=== PATIENT | female | born 1955 | race Caucasian/White ===

== ENCOUNTER → 2018-02-23 | Day surgery (SDC) | payer OTHER ==
[~2018-02-23] MED LIST: ACYCLOVIR800 MG PO; ALBUTEROL0.63 MG/3 INH; ASPIRIN81 M1 PO; ASPIRIN81 MG PO; BP MED PO; CELEBREX200 MG PO; CRESTOR10 MG PO; FENTANYL CITRATE/PF 100MCG/2 ML INJ ONE; KEFLEX500 MG PO; LIDODERM700 MG; LYRICA; LYRICA150 MG PO; LYRICA75 MG; MIDAZOLAM HCL 2 MG/2 ML VIAL ONE; NAPROSYN500 MG PO; NORCO 10-325 T1 EACH PO; NORCO 10MG-325MG1 EA PO; PREDNISONE10 M1; PROMETHAZINE HC25 M1; PROMETHAZINE HC25 M1 PO; PROPOFOL IV EMULSION 10 MG/ML 50 ML VIAL ONE; PROTONIX40 MG PO; PROZAC PO; SENNA S TABLET1 EACH PO; TOPROL XL25 MG PO; TYLENOL WITH C1 EACH PO; ULTRACET TABLE1 EACH PO; ULTRAM50 MG PO; WELLBUTRIN XL150 MG PO; [UNRECOGNIZED DRUG - REMARK]
[2018-02-23 11:04] LABS: BASOPHILS # (AUTO) 0.1 (0.0-0.1); BASOPHILS % 0.8 % (0.0-1.0); EOSINOPHILS # (AUTO) 0.2 (0.0-0.4); EOSINOPHILS % 2.9 % (0.0-6.0); HEMATOCRIT 37.5 % (34.2-44.1); HEMOGLOBIN 12.1 g/dL (12.0-16.0); LYMPHOCYTES # (AUTO) 1.9 (1.0-3.2); LYMPHOCYTES % 24.7 % (18.0-39.1); MEAN CORPUSCULAR HEMOGLOBIN 27.9 pg (28-32); MEAN CORPUSCULAR HGB CONC 32.3 g/dL (31-35); MEAN CORPUSCULAR VOLUME 86.6 fL (81-99); MONOCYTES # (AUTO) 0.4 (0.2-0.8); MONOCYTES % 5.2 % (4.4-11.3); NEUTROPHILS # (AUTO) 5.2 (2.1-6.9); PLATELET COUNT 366 x10e3/uL (140-360); RED BLOOD COUNT 4.33 x10e6/uL (3.6-5.1); RED CELL DISTRIBUTION WIDTH 14.4 % (11.7-14.4)
--- NOTE | 2018-02-23 12:57 | Operative Report ---
DATE OF PROCEDURE: February 23, 2018 REFERRING PHYSICIAN: Ankit Quiroz MD PROCEDURE PERFORMED: Esophagogastroduodenoscopy with esophageal dilatation and biopsies. INDICATIONS FOR PROCEDURE: Dysphagia. History of nausea and vomiting. MEDICATION: Patient was done under MAC. Please see anesthesiologist's note. PROCEDURE: With the patient in the left lateral decubitus position, the flexible fiberoptic Olympus gastroscope was introduced into the esophagus under direct visualization without any difficulty. The esophagus appeared to be within normal limits. There was a mild stricture noted at the GE junction that was dilated to a size 52-[place] Gregory. The scope was then advanced with ease into the stomach, traversing a small sliding hiatal hernia. Mucosa overlying the antrum and the body revealed some patchy, intense erythema and low-grade to moderate edema, and biopsies were obtained and sent to stain for H. pylori. Pylorus appeared to be of normal contour and shape. It was intubated with ease, and the scope was advanced all the way to the 2nd portion of the duodenum. There was some patchy erythema noted in the bulb and the proximal 2nd portion. The scope was then withdrawn back into the stomach and retroflexed. Mucosa overlying the fundus appeared to be within normal limits. The previously described hiatal hernia was also noted in the retroflexed position. The scope was then straightened out. The stomach was decompressed. The scope was subsequently withdrawn. Patient tolerated the procedure well. IMPRESSION 1. Esophageal stricture at gastroesophageal junction dilated to a size 52-[place] Gregory. 2. Small sliding hiatal hernia. 3. Gastritis, biopsied. Biopsies sent to stain for H. pylori. 4. Duodenitis. PLAN: Follow up histology. Initiate Protonix 40 mg 1 p.o. q.a.m. a.c. Job#: [id number] cc:ANKIT QUIROZ MD
[2018-02-23 13:08] VITALS: BP 157/70
== END | disposition home or self-care (01) ==
LOC: OR 09:29
PROVIDERS: ATTEND Internal Medicine Gastroenterology
DX: K22.2 Esophageal obstruction (principal); K29.70 Gastritis, unspecified, without bleeding; K29.80 Duodenitis without bleeding; K44.9 Diaphragmatic hernia without obstruction or gangrene; K21.9 Gastro-esophageal reflux disease without esophagitis; I25.2 Old myocardial infarction; M79.7 Fibromyalgia; I10 Essential (primary) hypertension; J45.909 Unspecified asthma, uncomplicated; Z87.891 Personal history of nicotine dependence; Z80.0 Family history of malignant neoplasm of digestive organs
CPT/HCPCS: 36415; 43239; 43450; 85025; 93005; J2250

== ENCOUNTER → 2018-03-23 | Day surgery (SDC) | payer OTHER ==
[2018-03-22 11:55] LABS: BASOPHILS # (AUTO) 0.1 (0.0-0.1); BASOPHILS % 0.7 % (0.0-1.0); EOSINOPHILS # (AUTO) 0.3 (0.0-0.4); EOSINOPHILS % 2.2 % (0.0-6.0); HEMATOCRIT 34.1 % (34.2-44.1); HEMOGLOBIN 11.3 g/dL (12.0-16.0); LYMPHOCYTES % 25.9 % (18.0-39.1); MEAN CORPUSCULAR HEMOGLOBIN 28.8 pg (28-32); MEAN CORPUSCULAR HGB CONC 33.1 g/dL (31-35); MONOCYTES # (AUTO) 0.7 (0.2-0.8); MONOCYTES % 5.7 % (4.4-11.3); NEUTROPHILS # (AUTO) 7.4 (2.1-6.9); NEUTROPHILS % 65.1 % (38.7-80.0); PLATELET COUNT 357 x10e3/uL (140-360); RED BLOOD COUNT 3.92 x10e6/uL (3.6-5.1); RED CELL DISTRIBUTION WIDTH 15.2 % (11.7-14.4)
[~2018-03-23] MED LIST changes: +METOCLOPRAMIDE HCL 10 MG/2ML VIAL ONE
[2018-03-23 13:15] VITALS: BP 114/77
--- NOTE | 2018-03-23 14:26 | Operative Report ---
DATE OF PROCEDURE: March 23, 2018 REFERRING PHYSICIAN: Ankit Quiroz MD PROCEDURE PERFORMED: Colonoscopy to distal transverse colon with polypectomy. INDICATIONS FOR COLONOSCOPY: Surveillance colonoscopy, personal history of colon polyps. MEDICATION: Patient was done under MAC. Please see anesthesiologist's note. PROCEDURE: With the patient in the left lateral decubitus position, the flexible fiberoptic Olympus colonoscope was inserted into the rectum with ease and advanced all the way to approximately the distal transverse colon. The scope was not advanced any further secondary to the presence of a large amount of retained fecal material. The scope was then withdrawn slowly. One polyp was snared from the distal transverse colon. The descending grossly appeared to be within normal limits. Three polyps were hot biopsied from the sigmoid. The scope was then retroflexed into the distal rectum, and whatever was visualized of the area around the dentate line appeared to be within normal limits. The scope was then straightened out. It was subsequently withdrawn. Patient tolerated the procedure well. IMPRESSION 1. Poor prep. 2. Transverse colon polyp, snared. 3. Sigmoid colon polyps times 3, one snared and two hot biopsied. PLAN: Follow up histology. Patient will need a repeat colonoscopy after a better prep. Job#: [id number] cc:ANKIT QUIROZ MD
== END | disposition home or self-care (01) ==
LOC: OR 09:04
PROVIDERS: ATTEND Internal Medicine Gastroenterology
DX: Z12.11 Encounter for screening for malignant neoplasm of colon (principal); D12.5 Benign neoplasm of sigmoid colon; D12.3 Benign neoplasm of transverse colon; R10.32 Left lower quadrant pain; K21.9 Gastro-esophageal reflux disease without esophagitis; K29.70 Gastritis, unspecified, without bleeding; K29.80 Duodenitis without bleeding; K44.9 Diaphragmatic hernia without obstruction or gangrene; Z86.010 Personal history of colon polyps; K22.2 Esophageal obstruction; I10 Essential (primary) hypertension
CPT/HCPCS: 36415; 45385; 85025; J2250; J2765; 45378; 45384

== ENCOUNTER → 2018-04-07 | Day surgery (SDC) | payer OTHER ==
[~2018-04-07] MED LIST changes: +HYOSCYAMINE SULFATE 0.5 MG/ML INJ ONE; -METOCLOPRAMIDE HCL 10 MG/2ML VIAL ONE; +PHENYLEPHRINE HCL 1% 10 MG/ML VIAL ONE; +PROPOFOL IV EMULSION 10 MG/ML 20 ML VIAL ONE
[2018-04-07 11:15] VITALS: BP 108/78
--- NOTE | 2018-04-07 14:03 | Operative Report ---
DATE OF PROCEDURE: April 07, 2018 REFERRING PHYSICIAN: Dr. Quiroz PROCEDURE PERFORMED: Colonoscopy with polypectomy. INDICATIONS FOR COLONOSCOPY: Personal history of colon polyps colon and poor prep on previous colonoscopy. MEDICATION: Patient was done under MAC. Please see anesthesiologist's note. PROCEDURE: With the patient in the left lateral decubitus position, the flexible fiberoptic Olympus colonoscope was inserted into the rectum and advanced all the way to the cecum. Prep was poor with a large amount of retained fecal material in the colon. The cecum was very poorly visualized due to the presence of a large amount of fecal material. The scope was then withdrawn slowly and there was no obvious obstructing or constricting lesions. One polyp was snared from the transverse colon. Again, no obstructing or constricting lesions noted in the transverse or descending, as well as the sigmoid colon. One polyp was hot biopsied from the sigmoid colon. The rectum appeared to be within limits. The scope was then retroflexed into the distal rectum and small internal hemorrhoids were noted, none of which was actively bleeding. The scope was then straightened out. It was subsequently withdrawn. Patient tolerated the procedure well. IMPRESSION 1. Poor prep without obvious obstructing or constricting lesions. 2. Transverse colon polyp, snared. 3. Sigmoid colon polyp, hot biopsied. 4. Internal hemorrhoids, none actively bleeding. PLAN: Follow up histology. Initiate high-fiber and low-fat diet. Initiate high-fiber supplement. Will discuss with the patient regarding an air contrast barium enema. Job#: [id number] cc:ANKIT QUIROZ MD
== END | disposition home or self-care (01) ==
LOC: OR 08:30
PROVIDERS: ATTEND Internal Medicine Gastroenterology
DX: K59.00 Constipation, unspecified (principal); D12.3 Benign neoplasm of transverse colon; K64.8 Other hemorrhoids; K29.70 Gastritis, unspecified, without bleeding; K29.80 Duodenitis without bleeding; K22.2 Esophageal obstruction; K21.9 Gastro-esophageal reflux disease without esophagitis; K44.9 Diaphragmatic hernia without obstruction or gangrene; J45.909 Unspecified asthma, uncomplicated; I25.2 Old myocardial infarction; I10 Essential (primary) hypertension; M79.7 Fibromyalgia; F17.210 Nicotine dependence, cigarettes, uncomplicated; Z79.82 Long term (current) use of aspirin; Z98.1 Arthrodesis status; Z80.0 Family history of malignant neoplasm of digestive organs
CPT/HCPCS: 45384; 45385; J1980; J2250; J2370; J2704; 45378

== ENCOUNTER → 2018-04-08 | Day surgery (SDC) | payer OTHER ==
[~2018-04-08] MED LIST changes: +ACETAMINOPHEN 1000 MG/100 ML 100 ML IV ONE; +GLUCAGON FOR INJ 1 MG VIAL ONE; -PHENYLEPHRINE HCL 1% 10 MG/ML VIAL ONE; -PROPOFOL IV EMULSION 10 MG/ML 20 ML VIAL ONE
[2018-04-08 19:25] VITALS: BP 121/79
[2018-04-08 20:14] LABS: FOLATE 11.9 ng/mL (7.0-15.4)
[2018-04-08 20:24] LABS: % IRON SATURATION 15 % (15-50); TOTAL IRON BINDING CAPACITY 273 ug/dL (261-478); TRANSFERRIN 195 mg/dL (180-382)
[2018-04-08 20:30] LABS: IRON 42 ug/dL (50-170)
--- NOTE | 2018-04-09 01:11 | Operative Report ---
DATE OF PROCEDURE: April 08, 2018 PROCEDURE PERFORMED: Colonoscopy and polypectomy. INDICATIONS FOR PROCEDURE: Personal history of colon polyps, poor prep on previous colonoscopy, polyps removed on previous colonoscopy, rule out synchronous colorectal neoplasm. MEDICATION: Patient was done under MAC. Please see anesthesiologist's note. PROCEDURE: With the patient in left lateral decubitus position, flexible fiberoptic Olympus colonoscope was inserted into the rectum with ease and advanced all the way to the cecum. It was then withdrawn slowly. Mucosa overlying the cecum appeared to be within normal limits. One polyp was hot biopsied from the ascending colon. The transverse grossly appeared to be within normal limits. One polyp was hot biopsied from the descending colon. Some scattered diverticular disease was noted in the descending and sigmoid colon. The rectum grossly appeared to be within normal limits. The scope was then retroflexed into the distal rectum and small internal hemorrhoids were noted, none of which was actively bleeding. The scope was then straightened out and was subsequently withdrawn. Patient tolerated the procedure well. IMPRESSION 1. Ascending colon polyp, hot biopsied. 2. Descending colon polyp, hot biopsied. 3. Diverticulosis. 4. Internal hemorrhoids, none actively bleeding. PLAN: Follow up histology. Initiate high-fiber low-fat diet. Initiate high-fiber supplement. Patient might benefit from a followup colonoscopy in 3 years. Job#: [id number] NIKIA
== END | disposition home or self-care (01) ==
LOC: OR 14:35
PROVIDERS: ATTEND Internal Medicine Gastroenterology
DX: R10.9 Unspecified abdominal pain (principal); D12.2 Benign neoplasm of ascending colon; K57.30 Diverticulosis of large intestine without perforation or abscess without bleeding; K64.8 Other hemorrhoids; K29.70 Gastritis, unspecified, without bleeding; K21.9 Gastro-esophageal reflux disease without esophagitis; K29.80 Duodenitis without bleeding; K44.9 Diaphragmatic hernia without obstruction or gangrene; K22.2 Esophageal obstruction; I25.2 Old myocardial infarction; M79.7 Fibromyalgia; J45.909 Unspecified asthma, uncomplicated; I10 Essential (primary) hypertension; Z79.82 Long term (current) use of aspirin; Z87.891 Personal history of nicotine dependence; Z80.0 Family history of malignant neoplasm of digestive organs
CPT/HCPCS: 36415; 45384; 82607; 82746; 83540; 84466; 85045; J0131; J1610; J1980; J2250; 45378

== ENCOUNTER → 2020-12-23 | Day surgery (SDC) | payer OTHER ==
[2020-12-20 08:10] LABS: BASOPHILS # (AUTO) 0.1 (0.0-0.1); BASOPHILS % 0.8 % (0.0-1.0); EOSINOPHILS # (AUTO) 0.2 (0.0-0.4); EOSINOPHILS % 3.6 % (0.0-6.0); HEMATOCRIT 33.7 % (34.2-44.1); HEMOGLOBIN 10.9 g/dL (12.0-16.0); LYMPHOCYTES # (AUTO) 2.1 (1.0-3.2); LYMPHOCYTES % 32.3 % (18.0-39.1); MEAN CORPUSCULAR HEMOGLOBIN 28.1 pg (28-32); MEAN CORPUSCULAR HGB CONC 32.3 g/dL (31-35); MEAN CORPUSCULAR VOLUME 86.9 fL (81-99); MONOCYTES # (AUTO) 0.5 (0.2-0.8); MONOCYTES % 8.2 % (4.4-11.3); NEUTROPHILS # (AUTO) 3.5 (2.1-6.9); NEUTROPHILS % 54.9 % (38.7-80.0); PLATELET COUNT 327 x10e3/uL (140-360); RED BLOOD COUNT 3.88 x10e6/uL (3.6-5.1); RED CELL DISTRIBUTION WIDTH 14.2 % (11.7-14.4)
[~2020-12-23] MED LIST changes: -ACETAMINOPHEN 1000 MG/100 ML 100 ML IV ONE; -FENTANYL CITRATE/PF 100MCG/2 ML INJ ONE; +FISH OIL 1,0001 EAC2 PO; -GLUCAGON FOR INJ 1 MG VIAL ONE; -HYOSCYAMINE SULFATE 0.5 MG/ML INJ ONE; -MIDAZOLAM HCL 2 MG/2 ML VIAL ONE; +ONE A DAY PO; -PROPOFOL IV EMULSION 10 MG/ML 50 ML VIAL ONE; +PROVENTIL HFA6.7 GM INH
[2020-12-23 12:40] VITALS: BP 113/55
== END | disposition home or self-care (01) ==
LOC: OR 08:22
PROVIDERS: ATTEND Internal Medicine Gastroenterology
DX: K22.2 Esophageal obstruction (principal); D12.4 Benign neoplasm of descending colon; D12.5 Benign neoplasm of sigmoid colon; D12.8 Benign neoplasm of rectum; K29.80 Duodenitis without bleeding; K29.50 Unspecified chronic gastritis without bleeding; K20.90 Esophagitis, unspecified without bleeding; K58.9 Irritable bowel syndrome, unspecified; K44.9 Diaphragmatic hernia without obstruction or gangrene; K21.9 Gastro-esophageal reflux disease without esophagitis; K57.30 Diverticulosis of large intestine without perforation or abscess without bleeding; K64.8 Other hemorrhoids; R63.4 Abnormal weight loss; R63.0 Anorexia; M79.7 Fibromyalgia; J45.909 Unspecified asthma, uncomplicated; I10 Essential (primary) hypertension; F32.9 Major depressive disorder, single episode, unspecified; Z01.810 Encounter for preprocedural cardiovascular examination; Z01.812 Encounter for preprocedural laboratory examination; Z20.822 Contact with and (suspected) exposure to COVID-19; Z87.891 Personal history of nicotine dependence
CPT/HCPCS: 36415; 43239; 43450; 45385; 85025; 93005; U0002; 45378; 45384